=== PATIENT | female | born 1970 | race Caucasian/White ===

== ENCOUNTER 2017-11-09 07:29 | Emergency (ER) | payer BC ==
--- NOTE | 2017-11-09 07:52 | ED ---
Lower Extremity - HPI Summary HPI Summary: Patient presents with left lower extremity pain since a slip and fall last night. She reports her Crocks hit a wet spot on the floor and her right foot went forward causing her to land on her left knee and then down on the ground. She initially had left knee pain followed by left ankle and foot pain and now has left hip pain. She's been bearing weight and she is able to move through a full range of motion however every time she bears weight on her left foot she has pain in the arch and instep of her foot which is constant and aching. She denies numbness, tingling, weakness, change in bowel or bladder habits and no back pain reported. No previous injuries to this area. She suspects she has soft tissue injuries but is here as the pain is getting progressively worse and she wanted to get it checked out. Has tried nothing for pain prior to arrival including heat, ice, or OTC pain medication. - History of Current Complaint Chief Complaint: EDExtremityLower Stated Complaint: LT LOWER EXTREMITY PAIN Time Seen by Provider: 11/09/17 07:41 Hx Obtained From: Patient Hx Last Menstrual Period: 2 WEEKS AGO Pain Intensity: 7 - Allergies/Home Medications Allergies/Adverse Reactions: Allergies Allergy/AdvReac Type Severity Reaction Status Date / Time amoxicillin Allergy Hives Verified 11/09/17 07:40 Latex, Natural Rubber Allergy See Comment Verified 11/09/17 07:40 PMH/Surg Hx/FS Hx/Imm Hx Previously Healthy: Yes Endocrine/Hematology History: Reports: Hx Thyroid Disease Denies: Hx Anticoagulant Therapy, Hx Blood Disorders Cardiovascular History: Denies: Hx Hypertension Respiratory History: Reports: Hx Asthma Musculoskeletal History: Reports: Hx Arthritis - OA - Surgical History Surgery Procedure, Year, and Place: VOCAL CHORD REPAIR - Immunization History Date of Tetanus Vaccine: PT STATES UNSURE Date of Influenza Vaccine: NONE Infectious Disease History: No Infectious Disease History: Denies: Traveled Outside the [place] in Last 30 Days - Social History Lives: With Family Alcohol Use: Occasionally Hx Substance Use: No Substance Use Type: Reports: None Hx Tobacco Use: Yes Smoking Status (MU): Current Every Day Smoker Review of Systems Constitutional: Negative Negative: Fever, Chills, Fatigue Genitourinary: Negative Negative: incontinence Positive: Arthralgia, Myalgia. Negative: Edema Skin: Other - abrasion Lt knee Neurological: Negative Psychological: Normal All Other Systems Reviewed And Are Negative: Yes Physical Exam Triage Information Reviewed: Yes Vital Signs On Initial Exam: Initial Vitals Temp Pulse Resp BP Pulse Ox 96.9 F 100 18 133/90 98 11/09/17 07:35 11/09/17 07:35 11/09/17 07:35 11/09/17 07:35 11/09/17 07:35 Vital Signs Reviewed: Yes Appearance: Positive: Well-Appearing, No Pain Distress - at rest - appears stiff w/ movements but is able to bear weight Skin: Positive: Warm, Skin Color Reflects Adequate Perfusion, Dry - quarter- sized pink/erythematous abrasion over Lt anterior knee - dry Head/Face: Positive: Normal Head/Face Inspection Eyes: Positive: EOMI ENT: Positive: Hearing grossly normal Respiratory/Lung Sounds: Positive: Breath Sounds Present Cardiovascular: Positive: Pulses are Symmetrical in both Upper and Lower Extremities. Negative: Leg Edema Left, Leg Edema Right Musculoskeletal: Positive: Strength/ROM Intact, Pain @ - Lt groin pain w/ hip flexion and this area is TTP over her hip flexor tendon and into anterior thigh/ quad - no gross deformity - limited exam d/t pain in re: to external/internal rotation (she is able to externally rotate to a degree but is limited and painful) - SI and lateral hip NTTP; Lt knee medial compartment TTP - no gross deformity, no laxity w/ special tests - pt reports pain w/ flexion and wt bearing; Lt instep TTP - pt reports this pain radiates up along medial/inferior aspect of ankle along tendon pathway - no erythema, no ecchymosis, no defromity - pain w/ dorsiflexion and eversion - pain in foot w/ wt bearing Neurological: Positive: Normal, Sensory/Motor Intact, Alert, Oriented to Person Place, Time, CN Intact II-III Psychiatric: Positive: Normal Diagnostics - Vital Signs Vital Signs Temp Pulse Resp BP Pulse Ox 11/09/17 07:35 96.9 F 100 18 133/90 98 - Laboratory Lab Statement: Any lab studies that have been ordered have been reviewed, and results considered in the medical decision making process. Re-Evaluation - Re-Evaluation First Eval Change: Improved - w/ NSAID Lower Extremity Course/Dx - Course Course Of Treatment: XR's: no acute findings. Suspect connective tissue strains /sprains - f/u w/ PCP. Offered crutches - pt declines. - Diagnoses Provider Diagnoses: Sprain of left knee/leg, Strain of flexor muscle of left hip, Strain of foot, left Discharge - Sign-Out/Discharge Documenting (check all that apply): Patient Departure - Discharge Plan Condition: Stable Disposition: HOME Patient Education Materials: Muscle Strain (ED), Knee Sprain (ED) Forms: *Work Release Referrals: Barb Magana PRINCIPAL EXAMINER [Primary Care Provider] - Additional Instructions: Rest, ice, elevate followed by gentle stretches to reduce stiffness and pain. After 48 hours, you may use heat prior to stretching and ice after for pain and swelling. Continue ibuprofen 800 mg every 8 hours with food as needed for pain. He may alternate with acetaminophen 650 mg every 6 hours as needed for pain. Limit sure weightbearing, standing and ambulation on this side over the next 1-2 weeks to aid in healing. *If symptoms persist or worsen, follow up with PCP. Call today to schedule an appointment. *If he developed worsening of pain, numbness, tingling, weakness, return to the emergency department. - Billing Disposition and Condition Condition: STABLE Disposition: Home
[2017-11-09] MEDS ORDERED: Ibuprofen TAB* 800 MG PO ONE (08:21)
--- NOTE | 2017-11-09 09:16 | RAD ---
HISTORY: Fall w/ Lt instep pain COMPARISONS: None VIEWS: 3 , Frontal, lateral, and oblique views of the left foot FINDINGS: BONE DENSITY: Normal. BONES: There is no displaced fracture. There is a plantar calcaneal enthesophyte. JOINTS: There is mild osteoarthritis of the first MTP joint. ALIGNMENT: There is no dislocation. SOFT TISSUES: Unremarkable. OTHER FINDINGS: None. IMPRESSION: DEGENERATIVE CHANGES. NO ACUTE OSSEOUS INJURY. IF SYMPTOMS PERSIST, RECOMMEND REPEAT IMAGING.
--- NOTE | 2017-11-09 09:17 | RAD ---
HISTORY: Fall onto patella COMPARISONS: None VIEWS: 2 , Frontal and lateral views of the left knee FINDINGS: BONE DENSITY: Normal. BONES: There is no displaced fracture. JOINTS: There is no arthropathy. There is no suprapatellar joint effusion or lipohemarthrosis. ALIGNMENT: There is no dislocation. SOFT TISSUES: Unremarkable. OTHER FINDINGS: None. IMPRESSION: NO ACUTE OSSEOUS INJURY. IF SYMPTOMS PERSIST, RECOMMEND REPEAT IMAGING.
--- NOTE | 2017-11-09 09:17 | RAD ---
HISTORY: Fall w/ Lt groin pain COMPARISONS: None VIEWS: 3 , Frontal view of the pelvis with frontal and frog-leg views of the left hip FINDINGS: BONE DENSITY: Normal. BONES: There is no displaced fracture. JOINTS: There is no arthropathy. ALIGNMENT: There is no dislocation. SOFT TISSUES: Unremarkable. OTHER FINDINGS: None. IMPRESSION: NO RADIOGRAPHIC EVIDENCE FOR HIP FRACTURE. X-RAYS MAY BE NEGATIVE WITH NONDISPLACED HIP FRACTURE, IF THERE IS PERSISTENT CLINICAL CONCERN, RECOMMEND CONSIDERATION OF MRI. IN THE SETTING OF CONTRAINDICATION TO MRI OR LIMITATION IN EMERGENT ACCESS TO MRI, CT WOULD BE SUGGESTED.
[2017-11-09 09:55] VITALS: BP 124/75
== END 2017-11-09 09:57 | disposition home or self-care (01) ==
LOC: ED 07:29
DX: S83.92XA Sprain of unspecified site of left knee, initial encounter (principal); S73.102A Unspecified sprain of left hip, initial encounter; F17.210 Nicotine dependence, cigarettes, uncomplicated; W01.0XXA Fall on same level from slipping, tripping and stumbling without subsequent striking against object, initial encounter; Y92.9 Unspecified place or not applicable; S93.602A Unspecified sprain of left foot, initial encounter
CPT/HCPCS: 99282; A9270-GY